=== PATIENT | male | born 1945 | race Caucasian/White ===

== ENCOUNTER 2016-11-03 08:13 | Observation (INO) | payer MEDICARE ==
[~2016-11-03] VITALS: Ht 177.8 cm; Wt 78.5 kg
[2016-11-03] VITALS (8 sets, daily range): BP systolic 109–138; BP diastolic 60–90; PULSE 56–136; RESP 12–17; O2SAT 94–97
[2016-11-03] MEDS ORDERED: MeTOProlol 1 mg/mL 5 mL Inj ONE (08:20)
--- NOTE | 2016-11-03 08:23 | ED.REPORT ---
HPI-Chest Pain 40 and Over Date of Service Nov 03, 2016 ED Provider: Elizabeth Renee MD The pt is a 71 y/o male w/ a hx of HTN, hyperlipidemia, diabetes mellitus, and cardiac stents presenting to the ED via EMS due chest pain onset 0600 this morning. He initially felt a flutter but it developed to a chest pressure w/ pain that radiates down both arms. The pt just moved to [facility] 2 weeks ago. 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 The pt had a cardiac catheter placed 02/18 after presenting w/ an unstable angina and an abnormal stress test. He also had stable coronary disease and secondary prevention recommendation w/o any revascularization. Nursing Notes Stated Complaint: CHEST PAIN Chief Complaint: Chest Pain Nursing Notes Reviewed: Yes Allergies: Coded Allergies: No Known Allergies (Unverified , 11/03/16) Scheduled ([Slo Niacin]) 1,000 MG PO BID Aspirin (Aspirin) 81 Mg Tablet 81 MG PO Every Other Day Atorvastatin (Lipitor) 10 Mg Tab 10 MG PO Evening Cholecalciferol (Vitamin D3) (Vitamin D3) 2,000 Unit Tablet 2,000 UNIT PO Evening Cyanocobalamin (Vitamin B12) 500 Mcg Tablet 1,000 MCG PO DAILY Folic Acid (Folic Acid) 0.4 Mg Tablet 0.4 MG PO Evening Insulin Glargine (Lantus U100 Insulin Vial) 100 Unit/Ml Vial 24 UNIT SUBQ QPM Insulin Human Lispro (HumaLOG U100 Insulin Vial) 100 Unit/Ml Unit 10-12 UNIT SUBQ TIDWM Check blood sugars before meals and at bedtime. Use correction factor only before meals. Blood Sugar Lispro Correction: <151, 0 units; 151-175, 1 unit; 176-200, 2 units; 201-225, 3 units; 226-250, 4 units; 251-275, 5 units; 276-300 , 6 units; 301-325, 7 units; 326-350, 8 units; 351-375, 9 units; 376-400, 10 units; >400, 12 units. Lisinopril (Lisinopril) 10 Mg Tablet 10 MG PO Evening Metformin ER (Metformin ER) 1,000 Mg Tablet 1,000 MG PO BID General Time Seen by MD: 08:21 Chief Complaint Chest pain Hx Obtained From: Patient, EMS Arrived By: Ambulance Sudden in Onset?: Yes Onset Occurred: 1 - 4 hours ago Symptom Duration: Since onset Recent Healthcare: Recent doctor visit Past Medical History Past Medical History Cardiac disease w/ two prior stents Diabetes mellitus HTN Hyperlipidemia Cardiac catheter placed 02/18 after presenting w/ unstable angina and abnormal stress test Stable coronary disease 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 Past Surgical History 2 cardiac stents and a cardiac catheter placed Smoking History Unknown if Ever Smoker Social History Other Social History: Good social support, Ambulatory Status Independent Review of Systems Cardiovascular: Reports: Chest pain Complete sys rev & neg: except as marked. Physical Exam Initial Vital Signs Vital Signs (First) Date Time Temp Pulse Resp B/P Pulse Ox O2 Delivery O2 Flow Rate FiO2 11/03/16 08:17 36.9 136 16 138/89 94 Nasal Cannula 2 Initial VS: Reviewed Head / Eyes: Atraumatic, Normocephalic, PERRL ENT: Mucous membranes moist, Conjunctiva normal, No scleral icterus Neck: Supple, Non-tender, Full range of motion General/Constitutional: Awake, Alert Appearance / Presentation: Positive: Pale Pt is in an unstable condition Respiratory / Chest: Atraumatic, Breath sounds NL, Breath sounds = bilat Cardiovascular: No murmurs Narrow complex tachycardia in the 130's Poorly perfused Abdomen: Atraumatic, Soft, Non-tender Upper Extremity / MS: Inspection NL, No deformity, Neurologic intact, Vascular intact Interpretation & Diagnostics Lab Results Interpretation Result Diagram: 11/03/16 0827 11/03/16 0827 Test 11/03/16 08:27 11/03/16 10:50 White Blood Count 5.3th/mm3 (3.8-10.1) Red Blood Count 5.20mil/mm3 (4.40-5.80) Hemoglobin 16.0g/dL (13.8-17.2) Hematocrit 46.7% (41.0-50.0) Mean Corpuscular Volume 89.8fL (81-100) Mean Corpuscular Hemoglobin 30.8pg (27.0-35.0) Mean Corpuscular Hemoglobin Concent 34.3% (32.0-37.0) Red Cell Distribution Width 13.0% (12.3-15.4) Platelet Count 58bil/L (150-400) Neutrophils (%) (Auto) 56.6% (40-74) Lymphocytes (%) (Auto) 29.0% (14-46) Monocytes (%) (Auto) 11.4% (4-12) Eosinophils (%) (Auto) 2.8% (0-5) Basophils (%) (Auto) 0.2% (0-3) Sodium Level 140mEq/L (134-144) Potassium Level 4.1mEq/L (3.5-5.2) Chloride Level 101mEq/L (97-108) Carbon Dioxide Level 22mmol/L (18-29) Blood Urea Nitrogen 20mg/dL (8-27) Creatinine 0.87mg/dL (0.76-1.27) Estimat Glomerular Filtration Rate 92mL/min (>59) Glucose Level 158mg/dL (60-99) Calcium Level 9.3mg/dL (8.5-10.1) Magnesium Level 1.5mg/dL (1.6-2.6) Total Bilirubin 0.6mg/dL (0.0-1.2) Aspartate Amino Transf (AST/SGOT) 40U/L (0-50) Alanine Aminotransferase (ALT/SGPT) 27U/L (0-44) Alkaline Phosphatase 134U/L (25-160) Troponin T 0.010ug/L (0.0-0.011) Total Protein 7.0g/dL (6.4-8.4) Albumin 4.0g/dL (3.4-5.0) Hold Urine Received (Received) ECG Interpretation ECG Interpretation: 2:1 Atrial flutter Rate 135 Sinus or ectopic atrial tachycardia Left axis deviation Probable anteroseptal infarct, old Borderline ST depression, lateral leads Prolonged QT interval No comparison Time: 08:17 Interpreted by: ED physician ECG Interpretation: Post cardioversion No ischemia Rate 63 NSR Similar to 01/21/16 Time: 08:37 Interpreted by: ED physician X-Ray Chest Interpretation Chest Xray Interpretation: IMPRESSION: 1. No acute cardiopulmonary disease. Dictated by: Indio Davis M.D. on 11/03/2016 at 9:02 Approved by: Indio Davis M.D. on 11/03/2016 at 9:03 View: Portable, 1 view Interpretation / Wet Read by: Interpret - Radiologist Procedures Electrical Cardioversion Time: 08:33 Procedure Performed by: ED physician Indication: Atrial flutter (Unstable 2:1 w/ chest pain, SOB and diaphoresis ) Consent / Setup / Site Prep: Informed consent provided, Consent from patient , Consent from spouse, Time-out performed, Placed on oxygen, Placed on pulse oximeter, Place on school lunch monitor, Hand hygiene observed, Stand sterile technique Procedural Sedation/Analgesia: Sedation: Propofol (40 cc) Joules: 100 Procedure Successful: Yes Post-Procedure Rhythm: Normal sinus rhythm Post-Procedure / Complications: No complications, Condition improved, Tolerated procedure well, Patient stable Re-Eval/Medical Decision Med Decision/Clinical Course 71-year-old gentleman admitted to the area so no medical records are available presents with complaints of palpitation and is pale rodriguez diaphoretic and obviously unstable upon arrival in the emergency department. He been doing well with no symptoms problems or complaints until 6 AM this morning when he felt like his heart was going fast felt like there was something heavy sitting on his chest with significant dyspnea and diaphoresis. On medic arrival he was found to be in a narrow complex tachycardia without evidence of acute STEMI. On my review this appears to be a 2:1 flutter. In the ER, stat medical team was ordered. Due to the severe chest pain the new atrial flutter severe diaphoresis and dyspnea decision was made to cardiovert him emergently. Consent was obtained from both patient and his . He was given 60 mg of propofol and converted with 100 J. Converted nicely to sinus rhythm. Once he was awake chest pain had completely resolved. Labs are unremarkable with initial troponin unremarkable. Given his history of cardiac disease, diabetes, hypertension, hyperlipidemia, and prior stent placement with unstable findings in new atrial flutter (now,status post cardioversion), would like to admit him for additional observation. Stable at time of transfer without chest pain dyspnea or diaphoresis. Source of Hx: Family Time of Eval: 09:17 Re-Evaluation/Progress Note: Pt rechecked. Informed pt of need for admission. Pt understands and agrees with plan for admission. All questions addressed. Consultation : Referral / Consult Name: Luis Arias MD Consulted With: Hospitalist Call Returned at: 11:57 Gate Cutter: Will see patient, Agrees with eval, Agrees with plan, Accepts admit Counseled Regarding: Diagnosis, Lab results, Need for admission Discharge & Departure Primary Impression: Chest pain Chest pain type: unspecified Qualified Code: R07.9 - Chest pain, unspecified Additional Impression: A-fib Atrial fibrillation type: unspecified Qualified Code: I48.91 - Unspecified atrial fibrillation Disposition: ADMITTED TO HOSPITAL Discharge Condition All VS Reviewed: Yes Condition: Stable Referrals: Francisca Yadav PA-C Crit Care Except Billable Proc Time Spent: 30-74 minutes Services Performed: Patient management by me, Time spent at bedside, Reviewing test results, Reviewing imaging, Discussing patient care, Documentation in record, Time with fam/surrogate Scribe Attestation Portions of this note were transcribed by Morris Siddiqui. I, Dr. Renee personally performed the history, physical exam and medical decision-making; I reviewed and confirmed the accuracy of the information in the transcribed note. copies to: Francisca Yadav PA-C, Shawna L MD Nov 03, 2016 08:23 Morirs Siddiqui Nov 03, 2016 08:37
[2016-11-03] MEDS ORDERED: 0.9% Sodium Chloride 1,000 ML IV ONE (08:24)
[2016-11-03] MEDS ORDERED: MeTOProlol 1 mg/mL 5 mL Inj IVPUSH PRN (08:25)
[2016-11-03] MEDS ORDERED: Propofol 10 mg/mL 20 mL Inj ONE (08:28)
[2016-11-03 08:30] LABS: BASOPHILS % (AUTO) 0.2 % (0-3); EOSINOPHILS % (AUTO) 2.8 % (0-5); MONOCYTES % (AUTO) 11.4 % (4-12); Mean Corpuscular Hemoglobin 30.8 pg (27.0-35.0); Mean Corpuscular Volume 89.8 fL (81-100); NEUTROPHILS % (AUTO) 56.6 % (40-74); Platelet Count 58 bil/L (150-400)
[2016-11-03 08:52] LABS: TROPONIN T 0.01 ug/L (0.0-0.011)
[2016-11-03 09:03] LABS: Magnesium 1.5 mg/dL (1.6-2.6)
--- NOTE | 2016-11-03 09:05 | DRSVH ---
PROCEDURE: X-RAY CHEST ONE VIEW, PORTABLE ([id number]) INDICATIONS: chest pain TECHNIQUE: One view of the chest was acquired. COMPARISON: None. FINDINGS: Surgical changes and devices: There are overlying external pacer pads noted. Lungs and pleura: No pleural effusions or pneumothorax. Lungs are clear. Mediastinum: Mediastinal contours appear normal. Heart size is normal. Bones and chest wall: No suspicious bony lesions. Overlying soft tissues appear unremarkable. IMPRESSION: 1. No acute cardiopulmonary disease. Dictated by: Indio Davis M.D. on 11/03/2016 at 9:02 Approved by: Indio Davis M.D. on 11/03/2016 at 9:03
[2016-11-03] MEDS ORDERED: Nitroglycerin 2% 1 Gm Ointment TOPICAL ONE (10:10)
[2016-11-03] MEDS ORDERED: LISI10TA PO (11:28)
[2016-11-03] MEDS ORDERED: METF-496 PO (11:29)
[2016-11-03] MEDS ORDERED: ASPI-973 PO (11:32)
[2016-11-03] MEDS ORDERED: FOLI20CA PO (11:32)
[2016-11-03] MEDS ORDERED: ATRV10T PO (11:32)
[2016-11-03] MEDS ORDERED: CHOL200025 PO (11:34)
[2016-11-03] MEDS ORDERED: CYAN500 PO (11:34)
[2016-11-03] MEDS ORDERED: INSU100V7 SUBQ (11:35)
[2016-11-03] MEDS ORDERED: INSLIS SUBQ (11:35)
[2016-11-03] MEDS ORDERED: SLO NIACIN PO (11:36)
[2016-11-03] MEDS ORDERED: FOLI0.4T2 PO (11:37)
[2016-11-03 12:00] LABS: APPEARANCE,URINE HAZY (CLEAR,HAZY); COLOR,URINE STRAW (YELLOW); OCCULT BLOOD,URINE NEGATIVE (NEGATIVE); UROBILINOGEN,URINE NORMAL (NORMAL)
[2016-11-03] MEDS ORDERED: Alum-Mag Hydrox-Simeth 30 mL Suspension PO PRN (13:15)
[2016-11-03] MEDS ORDERED: Polyethylene Glycol (PEG) 17 Gm Powder PO PRN (13:15)
[2016-11-03] MEDS ORDERED: Ondansetron 2 mg/mL 2 mL Inj IVPUSH PRN (13:15)
[2016-11-03] MEDS ORDERED: Glucose 40% Oral Gel 15 Gm Tube PO PRN (13:15)
--- NOTE | 2016-11-03 14:04 | PCM.HPMED ---
Subjective Date of Service Nov 03, 2016 Primary Provider: Admitting Physician: Luis Arias MD Primary Care Physician: Nopcp Attending Physician: Luis Arias MD Admit Status: From the Emergency Department, 23-Hour Observation, [facility] Telemetry Chief Complaint: Transient chest pain associated with a rapid atrial tachycardia, atrial flutter with 2-1 block. History of Present Illness: This is a pleasant 71-year-old gentleman who 2 weeks ago moved from [place] to [place]. He has a history of diabetes mellitus 2 insulin-dependent as well as CAD with history of PCI and 2 stents in the past. This morning shortly after awakening he was up moving around became acutely diaphoretic and chest heaviness. He had heaviness radiated to his neck and both arms as well as some nausea. He also felt fluttering. He ultimately called 911. In the emergency department he was found to be an atrial tachycardia, with chest pain and diaphoresis. The patient is felt to have a flutter for 2-1 block. He underwent emergent cardioversion for unstable tachycardia. Upon cardioversion the patient was in sinus rhythm and clinically improved immediately. He denies recent exertional chest pain or dyspnea. No recent pedal edema or orthopnea. No recent cough, cold symptoms, or pleuritic chest pain. No calf pain or swelling. Chest x-ray and troponin were unremarkable in the ED. ECG was unremarkable after cardioversion. Specifically the pain was described as being a pressure across both sides of the chest with some radiation to both arms. It is described as a weight or squeezing more than a sharp pain. It did not get better or worse with position change or deep breathing. Review of Systems: All else reviewed and otherwise unremarkable except as noted in history of present illness Allergies Coded Allergies: No Known Allergies (Unverified , 11/03/16) Home Medications ([Slo Niacin]) 1,000 MG PO BID Aspirin (Aspirin) 81 Mg Tablet 81 MG PO Every Other Day Atorvastatin (Lipitor) 10 Mg Tab 10 MG PO Evening Cholecalciferol (Vitamin D3) (Vitamin D3) 2,000 Unit Tablet 2,000 UNIT PO Evening Cyanocobalamin (Vitamin B12) 500 Mcg Tablet 1,000 MCG PO DAILY Folic Acid (Folic Acid) 0.4 Mg Tablet 0.4 MG PO Evening Insulin Glargine (Lantus U100 Insulin Vial) 100 Unit/Ml Vial 24 UNIT SUBQ QPM Insulin Human Lispro (HumaLOG U100 Insulin Vial) 100 Unit/Ml Unit 10-12 UNIT SUBQ TIDWM Check blood sugars before meals and at bedtime. Use correction factor only before meals. Blood Sugar Lispro Correction: <151, 0 units; 151-175, 1 unit; 176-200, 2 units; 201-225, 3 units; 226-250, 4 units; 251-275, 5 units; 276-300 , 6 units; 301-325, 7 units; 326-350, 8 units; 351-375, 9 units; 376-400, 10 units; >400, 12 units. Lisinopril (Lisinopril) 10 Mg Tablet 10 MG PO Evening Metformin ER (Metformin ER) 1,000 Mg Tablet 1,000 MG PO BID PMH CAD with history of PCI and stenting 2 Diabetes mellitus 2, insulin-dependent Hyperlipidemia Essential hypertension Idiopathic thrombocytopenic purpura, chronic for 17 years with platelet counts of between 30,000 and 50,000. No bleeding events. Has been followed by hematology. Surgical History PCI with stenting 2, vessels unknown to patient. This was at [facility]. Family History Father with CAD first NE at age 61. Social History Occupation: retired from [employer] Alcohol Use: No Hx Substance Use: No Hx Tobacco Use: No Smoking Status: Unknown if Ever Smoker Living Arrangement: with Family Exam Vital Signs Vital Sign - Last Date Time Temp Pulse Resp B/P Pulse Ox O2 Delivery O2 Flow Rate FiO2 11/03/16 12:22 36.7 56 97 Room Air 11/03/16 10:59 17 11/03/16 08:17 2 Exam Oriented 3. No distress. Fluent speech. Normal affect. Normal skull. Normal nose and ears. Anicteric sclera, symmetric pupils Oropharynx is unremarkable, no facial droop. Neck is supple, normal thyroid. No adenopathy. Lungs are clear, normal effort rate. Heart is regular without murmur gallop or rub. Abdomen soft, nondistended or tender. Extremities are free of pedal edema. Good radial and pedal pulses. Skin is free of rash, lesions. No petechiae or ecchymosis. Joints are grossly normal. Cranial nerves are grossly normal. Motor strength is normal in all extremities. Normal muscular tone. Lab and Diagnostics Labs Negative troponin Result Diagram: 11/03/1682611/03/16826 X-Rays, CTs and MRIs Chest x-ray unremarkable Assessment & Plan Paroxysmal atrial flutter with 2-1 block, symptomatic status post cardioversion in the ED. This is POA and is resolved. The plan is to monitor on telemetry for evidence of recurrence of arrhythmia. We will also add a low-dose beta mariaelena given his history of CAD. Diabetes mellitus 2, insulin-dependent. By mouth and stable. Check A1c, continue Lantus 24 at bedtime with nutritional and correctional lispro Hyperlipidemia, POA and stable. Continue atorvastatin 20 mg daily. CAD, POA and stable. Continue usual medications, add beta mariaelena. Patient is for resuscitation, confirmed today He is admitted observation status with a one night length of stay anticipated. Pain Evaluation: Adequate Pain Control Resuscitation Status: CPR: Attempt Resuscitation Time spent 40 minutes Luis Arias MD Nov 03, 2016 14:04
[2016-11-03] MEDS: Insulin LISPRO 300 Unit/3 mL Inj SUBQ SCH ×3 (14:47→22:00)
[2016-11-03] MEDS ORDERED: FOLI1TAB18 PO (15:23)
[2016-11-03] MEDS ORDERED: Heparin 5,000 Unit/mL Inj SUBQ SCH (16:30)
[2016-11-03] MEDS ORDERED: Insulin LISPRO 300 Unit/3 mL Inj SUBQ ONE (19:40)
[2016-11-03] MEDS ORDERED: Insulin GLARgine 100 Unit/mL Syringe SUBQ SCH (21:00)
[2016-11-04 03:48] LABS: BASOPHILS % (AUTO) 0.2 % (0-3); EOSINOPHILS % (AUTO) 2.4 % (0-5); MONOCYTES % (AUTO) 11.5 % (4-12); Mean Corpuscular Hemoglobin 30.7 pg (27.0-35.0); Mean Corpuscular Volume 91.1 fL (81-100); NEUTROPHILS % (AUTO) 61.9 % (40-74); Platelet Count 49 bil/L (150-400)
[2016-11-04 04:42] VITALS: BP 128/72; PULSE 55; RESP 16; O2SAT 97
[2016-11-04 05:37] VITALS: PULSE 47
[2016-11-04 08:00] VITALS: PULSE 56
[2016-11-04] MEDS: Insulin LISPRO 300 Unit/3 mL Inj SUBQ SCH (08:00)
[2016-11-04 08:12] VITALS: BP 150/78; PULSE 62; RESP 16; O2SAT 96
--- NOTE | 2016-11-04 10:31 | PCM.DIMED ---
Discharge Instructions Date of Service Nov 04, 2016 Dates of Hospitalization Nov 03, 2016 at 11:21 Discharge Diagnosis Discharge Diagnosis 1. Paroxysmal atrial flutter requiring cardioversion, resolved. 2. Diabetes mellitus 2, insulin-dependent. Controlled. 3. Essential hypertension, controlled. 4. Idiopathic thrombocytopenic purpura, chronic and stable. 5. Coronary artery disease, with history of 2 stents. Chronic and stable. Diet Discharge Diet: Heart Healthy, Diabetic Activity Discharge Activity: No restrictions Call your provider Call your provider for: Shortness of breath, Chest pain Patient Instructions Patient Instructions Since you just moved to [place] we will establish you with the resident clinic. We will likely refer you to hematology to follow your chronic thrombocytopenia shortly thereafter as well as cardiology for history of thrombocytopenia and 2 cardiac stents. We will need to obtain year-old records from [facility]. Depending on what they have done recently me we may do an echocardiogram in the next month or 2 months. Follow-up Provider: [facility] Follow-up with PCP in: 1 week Luis Arias MD Nov 04, 2016 10:31
[2016-11-04] MEDS ORDERED: METO25TA99 PO (10:32)
--- NOTE | 2016-11-04 11:32 | PCM.DC.MED ---
Discharge Summary Date of Service Nov 04, 2016 Dates of Hospitalization Date of Hospital Admission Nov 03, 2016 at 11:21 Date of Discharge: Nov 04, 2016 Providers: Admitting Physician: Luis Arias MD Primary Care Physician: Yoel Attending Physician: Luis Arias MD Diagnosis at Time of Discharge Diagnosis at Time of Discharge 1. Paroxysmal atrial flutter requiring cardioversion, resolved. 2. Diabetes mellitus 2, insulin-dependent. Controlled. 3. Essential hypertension, controlled. 4. Idiopathic thrombocytopenic purpura, chronic and stable. 5. Coronary artery disease, with history of 2 stents. Chronic and stable. Consultations None Procedures XRay, CTs & MRIs Chest x-ray unremarkable ECG 12 Lead Initial ECG revealed an atrial tachycardia with a rate of 35. No overt ST segment depressions. Post cardioversion ECG sinus rhythm and normal intervals. The patient does have no other overt abnormalities. Invasive Procedures None Brief History This is a pleasant 71-year-old gentleman who 2 weeks ago moved from [place] to [place]. He has a history of diabetes mellitus 2 insulin-dependent as well as CAD with history of PCI and 2 stents in the past. This morning shortly after awakening he was up moving around became acutely diaphoretic and chest heaviness. He had heaviness radiated to his neck and both arms as well as some nausea. He also felt fluttering. He ultimately called 911. In the emergency department he was found to be an atrial tachycardia, with chest pain and diaphoresis. The patient is felt to have a flutter for 2-1 block. He underwent emergent cardioversion for unstable tachycardia. Upon cardioversion the patient was in sinus rhythm and clinically improved immediately. He denies recent exertional chest pain or dyspnea. No recent pedal edema or orthopnea. No recent cough, cold symptoms, or pleuritic chest pain. No calf pain or swelling. Chest x-ray and troponin were unremarkable in the ED. ECG was unremarkable after cardioversion. Specifically the pain was described as being a pressure across both sides of the chest with some radiation to both arms. It is described as a weight or squeezing more than a sharp pain. It did not get better or worse with position change or deep breathing. Hospital Course 1. Paroxysmal atrial flutter with 2-1 block, symptomatic status post cardioversion in the ED. This is POA and is resolved. The plan is to monitor on telemetry for evidence of recurrence of arrhythmia. We will also add a low- dose beta mariaelena given his history of CAD. This patient was cardioverted in the ED for an atrial tachycardia. He did convert consistent with a V. fib rhythm. The patient had no recurrence. He denies a history of atrial fibrillation. He is on chronic aspirin for CAD and declines stronger anticoagulants given his chronic thrombocytopenia with a platelet count of about 50,000. 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 He will be started on metoprolol for CAD and rate control in the event of paroxysmal atrial arrhythmia. 2. Diabetes mellitus 2, insulin-dependent. By mouth and stable. Check A1c, continue Lantus 24 at bedtime with nutritional and correctional lispro This remained stable throughout the hospitalization 3. Hyperlipidemia, POA and stable. Continue atorvastatin 20 mg daily. This is also stable. 4. CAD, POA and stable. Continue usual medications, add beta mariaelena. Serial troponins were unremarkable he had no chest pain. Patient is for resuscitation, confirmed today Stable for discharge on November 04. Exam Vital Signs (Last) Date Time Temp Pulse Resp B/P Pulse Ox O2 Delivery O2 Flow Rate FiO2 11/04/16 08:12 36.6 62 16 150/78 96 Room Air 11/03/16 08:17 2 Exam Patient was seen and examined on the day of discharge Test 11/03/16 08:27 11/03/16 10:50 11/03/16 13:35 11/03/16 18:48 Hemoglobin A1c 7.5% (4.8-5.6) Magnesium Level 1.5mg/dL (1.6-2.6) Urine Color Straw (YELLOW) Urine Appearance Hazy (CLEAR,HAZY) Urine pH 6.0 (5.0-8.0) Urine Specific [place] 1.015 (1.003-1.035) Urine Protein Negativemg/dL (NEG,TRACE) Urine Glucose (UA) Negativemg/dL (NEGATIVE) Urine Ketones Tracemg/dL (NEGATIVE) Urine Occult Blood Negative (NEGATIVE) Urine Nitrite Negative (NEGATIVE) Urine Bilirubin Negative (NEGATIVE) Urine Urobilinogen Normalmg/dL (NORMAL) Urine Leukocyte Esterase Negative (NEGATIVE) Urine RBC 0-2/hpf (0-2) Urine WBC 0-5/hpf (0-5) Urine Epithelial Cells Occasional/hpf (NONE-MOD) Urine Crystals None seen (NONE SEEN) Urine Bacteria None/hpf (NONE-FEW) Urine Hyaline Casts None/lpf (NONE) Urine Granular Casts None seen (NONE SEEN) Urine Waxy Casts None seen (NONE SEEN) Urine Red Blood Cell Casts None seen (NONE SEEN) Urine White Blood Cell Casts None seen (NONE SEEN) Urine Mucus None seen (None Seen) Urine Trichomonas None seen (NONE SEEN) Urine Yeast None (NONE SEEN) Urinalysis Comment None Urine Culture Reflexed Not indicated Troponin T < 0.010ug/L (0.0-0.011) Hold Urine Received (Received) Test 11/04/16 03:20 White Blood Count 5.9th/mm3 (3.8-10.1) Red Blood Count 4.49mil/mm3 (4.40-5.80) Hemoglobin 13.8g/dL (13.8-17.2) Hematocrit 40.9% (41.0-50.0) Mean Corpuscular Volume 91.1fL (81-100) Mean Corpuscular Hemoglobin 30.7pg (27.0-35.0) Mean Corpuscular Hemoglobin Concent 33.7% (32.0-37.0) Red Cell Distribution Width 13.2% (12.3-15.4) Platelet Count 49bil/L (150-400) Neutrophils (%) (Auto) 61.9% (40-74) Lymphocytes (%) (Auto) 24.0% (14-46) Monocytes (%) (Auto) 11.5% (4-12) Eosinophils (%) (Auto) 2.4% (0-5) Basophils (%) (Auto) 0.2% (0-3) Sodium Level 142mEq/L (134-144) Potassium Level 4.2mEq/L (3.5-5.2) Chloride Level 105mEq/L (97-108) Carbon Dioxide Level 25mmol/L (18-29) Blood Urea Nitrogen 19mg/dL (8-27) Creatinine 0.96mg/dL (0.76-1.27) Estimat Glomerular Filtration Rate 82mL/min (>59) Glucose Level 106mg/dL (60-99) Calcium Level 8.6mg/dL (8.5-10.1) Total Bilirubin 0.5mg/dL (0.0-1.2) Aspartate Amino Transf (AST/SGOT) 27U/L (0-50) Alanine Aminotransferase (ALT/SGPT) 22U/L (0-44) Alkaline Phosphatase 104U/L (25-160) Total Protein 5.7g/dL (6.4-8.4) Albumin 3.4g/dL (3.4-5.0) Discharge Medications Discharge Medications ([Slo Niacin]) 1,000 MG PO BID (Reported) Aspirin (Aspirin) 81 Mg Tablet 81 MG PO Every Other Day (Reported) Atorvastatin (Lipitor) 10 Mg Tab 10 MG PO Evening (Reported) Cholecalciferol (Vitamin D3) (Vitamin D3) 2,000 Unit Tablet 2,000 UNIT PO Evening (Reported) Cyanocobalamin (Vitamin B12) 500 Mcg Tablet 1,000 MCG PO DAILY (Reported) Folic Acid (Folic Acid) 1 Mg Tablet 1 MG PO DAILY (Reported) Insulin Glargine (Lantus U100 Insulin Vial) 100 Unit/Ml Vial 24 UNIT SUBQ QPM ( Reported) Insulin Human Lispro (HumaLOG U100 Insulin Vial) 100 Unit/Ml Unit 10-12 UNIT SUBQ TIDWM (Reported) Check blood sugars before meals and at bedtime. Use correction factor only before meals. Blood Sugar Lispro Correction: <151, 0 units; 151-175, 1 unit; 176-200, 2 units; 201-225, 3 units; 226-250, 4 units; 251-275, 5 units; 276-300 , 6 units; 301-325, 7 units; 326-350, 8 units; 351-375, 9 units; 376-400, 10 units; >400, 12 units. Lisinopril (Lisinopril) 10 Mg Tablet 10 MG PO Evening (Reported) Metformin ER (Metformin ER) 1,000 Mg Tablet 1,000 MG PO BID (Reported) Metoprolol Succinate ER (Metoprolol Succinate ER) 25 Mg Tab.er.24h 25 MG PO DAILY Prescribed by: LUIS ARIAS MD Followup Plan Disposition: Home Discharge Diet: Heart Healthy, Diabetic Discharge Activity: No restrictions Patient Instructions Since you just moved to [place] we will establish you with the resident clinic. We will likely refer you to hematology to follow your chronic thrombocytopenia shortly thereafter as well as cardiology for history of thrombocytopenia and 2 cardiac stents. We will need to obtain year-old records from [facility]. Depending on what they have done recently me we may do an echocardiogram in the next month or 2 months. Follow-up Provider: [facility] Residency Clinic Follow-up with PCP in: 1 week Time spent 30 minutes Luis Arias MD Nov 04, 2016 11:32
== END 2016-11-04 11:40 | disposition home or self-care (01) ==
LOC: SED 08:13 → EDBD 08:13 → CCU 11:21 → PCC 14:37
PROVIDERS: ADMIT Hospitalist; ATTEND Hospitalist
DX: I48.4 Atypical atrial flutter (principal); I25.10 Atherosclerotic heart disease of native coronary artery without angina pectoris; R07.89 Other chest pain; E11.9 Type 2 diabetes mellitus without complications; E78.5 Hyperlipidemia, unspecified; I10 Essential (primary) hypertension; D69.3 Immune thrombocytopenic purpura; Z95.1 Presence of aortocoronary bypass graft; Z98.61 Coronary angioplasty status; Z79.84 Long term (current) use of oral hypoglycemic drugs; Z79.82 Long term (current) use of aspirin; Z79.4 Long term (current) use of insulin; Z79.899 Other long term (current) drug therapy